=== PATIENT | female | born 1980 | race Caucasian/White ===

== ENCOUNTER 2016-07-08 08:00 | Emergency (ER) | payer OTHER ==
--- NOTE | 2016-07-08 10:14 | DIAGNOSTIC IMAGING REPORT ---
PROCEDURE: CT ABDOMEN/PELVIS W/O CONTRAST INDICATION: Nausea left flank pain. TECHNIQUE: Noncontrast axial images with sagittal and coronal reformations. COMPARISON: None. FINDINGS: ABDOMEN: There is mild left hydronephrosis and hydroureter secondary to a 3 mm calculus located at the ureteral vesicle junction. There is a nonobstructing 2 mm calculus in the upper pole left kidney. There is a 1 mm non-obstructing calculus in the upper pole right kidney. Right kidney and ureter are otherwise normal. Gallbladder, liver, spleen, pancreas, and aorta are normal. Bowel pattern is normal, including appendix. Metal umbilical piercing device. PELVIS: There is a T-shaped IUD within the endometrial canal. Uterus and adnexal structures are otherwise normal. There is a small amount of free fluid in the pelvis. IMPRESSION: 1. There is mild left hydronephrosis and hydroureter secondary to a 3 mm calculus at the left ureteral vesicle junction. 2. There is a 2 mm nonobstructing calculus of the left kidney. 3. There is a 1 mm nonobstructing calculus of the right kidney. 4. T-shaped IUD in position. 5. Small amount of free fluid in the pelvis. Consider occult ruptured ovarian cyst. 6. Findings discussed with Dr. Chiki Lopes. All CT scans at this facility use dose modulation, iterative reconstruction, and/or weight-based dosing when appropriate to reduce radiation dose to as low as reasonably achievable.
--- NOTE | 2016-07-08 11:41 | ED ORDER SUMMARY ---
..... Patient: RANDY SESAY OrderSheet [facility] VisitID: [id number] [place] [address] 36y, F Registration Date/Time: 07/08/2016 ORDER SHEET Weight: 47.1 kg (stated) Allergies: No Known Drug Allergy GENERAL ORDERS: UA-Culture if indicated Urgent (08:07/08/2016 Maryjo FERNANDEZ) (Ack 8:22 JESSICAoersarah) (8:44 LWhalen R.N.) Urine Urgent (08:07/08/2016 Maryjo FERNANDEZ) (Ack 8:22 Wanda) (8:44 LWhalen R.N.) CT Abd/Pel wo Cont Urgent (08:43 07/08/2016 Maryjo FERNANDEZ) (Ack 8:46 JESSICAoesushil) (9:37 KHoerner) MEDICATION ORDERS: IV FLUIDS: IV NS : initial bolus 1000 mL (1000 mL/hr), then none - (NOW) (08:33 07/08/2016 Maryjo FERNANDEZ) (8:40 LWhalen R.N.) Dilaudid IV 0.5 mg (HIGH ALERT MEDICATION, NOW) (08:33 07/08/2016 Maryjo FERNANDEZ) (8:43 LWhalen R.N.) Toradol IV 15 mg (NOW) (08:07/08/2016 Maryjo FERNANDEZ) (8:40 LWhalen R.N.) Zofran IV 4 mg (NOW) (08:07/08/2016 Maryjo FERNANDEZ) (8:44 LWhalen R.N.) Dilaudid IV 1 mg (HIGH ALERT MEDICATION, NOW) (10:02 07/08/2016 Long Brennan) (10:04 LWhalen R.N.) IV NS : initial bolus 1000 mL (1000 mL/hr), then none - for X1 (NOW) (10:07/08/2016 Long Brennan) (10:04 LWhalen R.N.) Dilaudid IV 1 mg (HIGH ALERT MEDICATION, NOW) (11:38 07/08/2016 Long Brennan) (12:19 LWhalen R.N.) ORDER SHEET NOTES: [Electronically signed by Chiki Lopes Dr. (11:49 07/08/2016)] [Electronically signed by Cherri Gutierrez R.N. (:19 07/08/2016)] [Electronically locked/signed by Cherri Gutierrez R.N. (:07/08/2016)]
--- NOTE | 2016-07-08 11:41 | ED ORDER SUMMARY ---
..... Patient: RANDY SESAY OrderSheet [facility] VisitID: [id number] [place] [address] 36y, F Registration Date/Time: 07/08/2016 ORDER SHEET Weight: 47.1 kg (stated) Allergies: No Known Drug Allergy GENERAL ORDERS: UA-Culture if indicated Urgent (08:07/08/2016 Maryjo FERNANDEZ) (Ack 8:22 JESSICAoersarah) (8:44 LWhalen R.N.) Urine Urgent (08:07/08/2016 Maryjo FERNANDEZ) (Ack 8:22 Wanda) (8:44 LWhalen R.N.) CT Abd/Pel wo Cont Urgent (08:43 07/08/2016 Maryjo FERNANDEZ) (Ack 8:46 JESSICAoesushil) (9:37 KHoerner) MEDICATION ORDERS: IV FLUIDS: IV NS : initial bolus 1000 mL (1000 mL/hr), then none - (NOW) (08:33 07/08/2016 Maryjo FERNANDEZ) (8:40 LWhalen R.N.) Dilaudid IV 0.5 mg (HIGH ALERT MEDICATION, NOW) (08:33 07/08/2016 Maryjo FERNANDEZ) (8:43 LWhalen R.N.) Toradol IV 15 mg (NOW) (08:07/08/2016 Maryjo FERNANDEZ) (8:40 LWhalen R.N.) Zofran IV 4 mg (NOW) (08:07/08/2016 Maryjo FERNANDEZ) (8:44 LWhalen R.N.) Dilaudid IV 1 mg (HIGH ALERT MEDICATION, NOW) (10:02 07/08/2016 Long Brennan) (10:04 LWhalen R.N.) IV NS : initial bolus 1000 mL (1000 mL/hr), then none - for X1 (NOW) (10:07/08/2016 Long Brennan) (10:04 LWhalen R.N.) Dilaudid IV 1 mg (HIGH ALERT MEDICATION, NOW) (11:38 07/08/2016 Long Brennan) (12:19 LWhalen R.N.) ORDER SHEET NOTES: [Electronically signed by Chiki Lopes Dr. (11:49 07/08/2016)] [Electronically signed by Cherri Gutierrez R.N. (:19 07/08/2016)] [Electronically locked/signed by Cherri Gutierrez R.N. (:07/08/2016)]
--- NOTE | 2016-07-08 11:41 | ED NURSING NOTES ---
Clinical Report - Nurses [facility] [address] [place] [address] 07/08/2016 8:03 [id number] Triage time 08:15 Jul 08 2016. Acuity: LEVEL 3. Chief Complaint: (left sided back pain into groin. Severe pressure like she has to push. Only has a tiny bit of pee when goes.). DAPHNIE COMA SCORE: Points Coma Scale: 15- eyes open spontaneously (4); best verbal response- oriented x 4 (5); best motor response- obeys commands (6). --08:20 Cherri Gutierrez R.N. 08:15 07/08/16. BP: 124/83. HR: 85. RR: 18. O2 saturation: 98%. Temp: 98.4 F. Pain level now 11/15. --08:20 Cherri Gutierrez R.N. Weight: 47.1 kg stated. Height/Length: 60 inches Per Patient. BMI: 20.3. --08:17 Cherri Gutierrez R.N. Medications None. --08:17 Cherri Gutierrez R.N. Allergies No Known Drug Allergy. --08:17 Cherri Gutierrez R.N. History Arrived by private vehicle. Historian: patient. Accompanied by family. This started just prior to arrival. No fever, weakness, cough, difficulty breathing or skin rash. Denies muscle aches. 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 PAST MEDICAL HX: No history of diabetes mellitus, hypertension, heart disease or lung disease. Last normal menstrual period- 22 June. SOCIAL HX: Current every day light tobacco smoker (cigarette)- less than 1/2 a pack per day. No alcohol use or drug use. SELF HARM ASSESSMENT: A self harm assessment was performed. The patient answered "no" to the question "Have you recently felt down, depressed, or hopeless?" and "Do you have thoughts of harming or killing yourself?". FALL RISK ASSESSMENT: Fall risk assessment completed. No fall risk identified. NUTRITIONAL RISK ASSESSMENT: The nutritional risk assessment revealed no deficiencies. FUNCTIONAL ASSESSMENT: Functional assessment: no impairments noted. LEARNING NEEDS ASSESSMENT: The learning needs assessment revealed no barriers. ABUSE ASSESSMENT: Abuse assessment: (yes) The patient was asked "Do you feel safe in your home?". SKIN INTEGRITY ASSESSMENT: Skin integrity risk assessment completed. No skin integrity risk identified. --08:20 Cherri Gutierrez R.N. PROBLEMS: Congested pelvic syndrome . --08:18 Cherri Gutierrez R.N. ADDITIONAL SURGERIES: IUD . Leep . Thyroid Surgery. --08:18 Cherri Gutierrez R.N. Interventions ID band on patient. --08:20 Cherri Gutierrez R.N. PHYSICAL ASSESSMENT Ambulatory to room. GENERAL / NEURO / PSYCH: Alert. Oriented X 4. Appears in pain, anxious and in distress. HEENT: Pupils equal, round and reactive to light. No facial asymmetry noted. Mucous membranes are pink. RESPIRATORY: Respirations not labored. Chest nontender. Breath sounds within normal limits. CVS: Normal sinus rhythm noted. Capillary refill less than 2 seconds. Pulses within normal limits. GI / : ( Last BM this am and normal). Abdomen soft and nontender. SKIN: Skin intact. Skin is warm and dry. Normal skin turgor. --08:20 Cherri Gutierrez R.N. NURSING PROGRESS NOTES The initial plan of care for this patient includes an assessment with efforts to address patient positioning, appropriate ambient lighting and comfortable environmental temperature. Pulse oximeter and NIBP monitor placed on patient. Head of bed elevated (90). Reassurance given. Call light placed in reach. Side rails up x 1. Bed placed in lowest position. Brakes of bed on. --08:21 Cherri Gutierrez R.N. 08:25 07/08/2016 Site #1 started via IV in the right antecubital space with an 20g angiocath, with aseptic technique and good blood return; one attempt. Blood drawn: rainbow set. Labeled in the presence of the patient and sent to the lab. Saline lock flushed with 10 mL saline. --08:40 Cherri Gutierrez R.N. 08:40 07/08/2016 Started bag #1 1000 mL IV Fluids IV NS (Saline); at 1000 mL/hr over 2 minute(s) via site #1 via IV pump. Allergies verified and confirmed 5 rights. IV patency established. IV site checked: no pain, redness, or swelling. IV flushed thoroughly pre- and post-medication administration. --08:40 Cherri Gutierrez R.N. 08:40 07/08/2016 Toradol IVP 15 mg given over 2 minute(s) via site #1. Allergies verified and confirmed 5 rights. IV patency established. IV site checked: no pain, redness, or swelling. IV flushed thoroughly pre- and post-medication administration. --08:40 Cherri Gutierrez R.N. 08:43 07/08/2016 Dilaudid (HYDROmorphone HCl PF) IVP 0.5 mg given over 1 minute(s) via site #1. Allergies verified, confirmed 5 rights and sedative warning given to the patient and patient's director of distance learning. IV patency established. IV site checked: no pain, redness, or swelling. IV flushed thoroughly pre- and post-medication administration. --08:43 Cherri Gutierrez R.N. 08:44 07/08/2016 Zofran (Ondansetron HCl) IVP 4 mg given over 2 minute(s) via site #1. Allergies verified and confirmed 5 rights. IV patency established. IV site checked: no pain, redness, or swelling. IV flushed thoroughly pre- and post-medication administration. --08:44 Cherri Gutierrez R.N. 10:04 07/08/2016 Dilaudid (HYDROmorphone HCl PF) IVP 1 mg given over 2 minute(s) via site #1. Allergies verified, confirmed 5 rights and sedative warning given to the patient and patient's director of distance learning. IV patency established. IV site checked: no pain, redness, or swelling. IV flushed thoroughly pre- and post-medication administration. --10:04 Cherri Gutierrez R.N. 10:04 07/08/2016 Started bag #1 1000 mL IV Fluids IV NS (Saline); at 1000 mL/hr over 1 hour(s) via site #1 via IV pump. Allergies verified and confirmed 5 rights. IV patency established. IV site checked: no pain, redness, or swelling. IV flushed thoroughly pre- and post-medication administration. --10:04 Cherri Gutierrez R.N. 10:04 07/08/2016 IV Fluids IV NS Discontinued: bag #1 infused. Total amount infused: 990 mL. IV patency established. IV site checked: no pain, redness, or swelling. IV flushed thoroughly. --10:04 Cherri Gutierrez R.N. 11:07 07/08/2016 IV Fluids IV NS Discontinued: bag #2 completed. Total amount infused: 1000 mL. IV patency established. IV site checked: no pain, redness, or swelling. IV flushed thoroughly. --11:07 Juan José Gonzalez R.N. 12:19 07/08/2016 Dilaudid (HYDROmorphone HCl PF) IVP 1 mg given over 2 minute(s) via site #1. Allergies verified, confirmed 5 rights and sedative warning given to the patient and patient's family. IV patency established. IV site checked: no pain, redness, or swelling. IV flushed thoroughly pre- and post-medication administration. --12:19 Cherri Gutierrez R.N. DISPOSITION / DISCHARGE 12:19 07/08/2016 Site #1 removed upon discharge. Catheter intact. Pressure dressing applied. --12:20 Cherri Gutierrez R.N. Departure time: 12:Jul 08 2016. Condition at departure: improved. No learning barriers present. Discharge instructions provided and reviewed with the patient. Reviewed warnings. Reviewed medication(s). Treatments reviewed. Reviewed referrals. Work note given. Patient verbalized understanding. Written instructions provided in Albanian. The patient was discharged home and accompanied by spouse. She left the Emergency Department ambulatory and via private vehicle. Spouse driving. --12:20 Cherir Gutierrez R.N. 12:22 07/08/16. BP: 99/67. HR: 80. RR: 18. O2 saturation: 100%. Temp: 98.4 F. Pain level now 10. --12:22 Cherri Gutierrez R.N. Locked/Released at 07/08/2016 19:19 by Cherri Gutierrez R.N.
--- NOTE | 2016-07-08 11:41 | ED CLINICAL REPORT ---
Clinical Report - Physicians/Mid Levels [facility] [address] [place] [address] 07/08/2016 8:03 Patient: RANDY SESAY Time Seen: 820. Arrived- By private vehicle. Historian- patient. HISTORY OF PRESENT ILLNESS Chief Complaint: LOW BACK PAIN and LEFT FLANK PAIN. This started last night and still present. The symptoms are described as moderate. Modifying factors- (PT states that she keeps feeling as though she needs to bear down, but this does not help her sx.). Not worsened by anything. Not relieved by anything. The patient has had pelvic pain, lower back pain and flank pain. No abdominal pain, vaginal pain or abnormal bleeding. She has had mild burning pain with urination. The patient has had urinary frequency and hematuria. She has had urgency of urination. Sexually active. control measures utilized (TL and IUD). Denies current . Similar symptoms previously: None. Recent medical care: Not recently seen/assessed. REVIEW OF SYSTEMS The patient has had nausea. No vomiting, diarrhea, black stools, headache or fever. No chills, eye discomfort, sore throat, cough or difficulty breathing. No chest pain, skin rash, enlarged lymph nodes or joint pain. All systems otherwise negative, except as recorded above. PAST HISTORY Problems: Congested pelvic syndrome . Additional Surgeries: IUD . Leep . Thyroid Surgery. Medications: None. Allergies: No Known Drug Allergy. SOCIAL HISTORY Smoker- current status unknown. No alcohol use or drug use. ADDITIONAL NOTES The nursing notes have been reviewed. PHYSICAL EXAM Vital Signs: 07/08/2016 08:15 BP: 124/83. HR: 85. RR: 18. O2 saturation: 98%. Temp: 98.4 F. Have been reviewed. Appearance: Alert. Oriented X3. (Pt appears moderately uncomfortable, and occasionally moans in pain. She is pleasant and cooperative despite this, however.). HEENT: Normal external inspection. Neck: Neck supple. CVS: Heart sounds normal. Respiratory: No respiratory distress. Breath sounds normal. Abdomen: Soft. Moderate tenderness (L flank). No guarding or rebound tenderness. Back: Moderate CVA tenderness on the left. Skin: Skin warm and dry. Normal skin color. No rash. Normal skin turgor. Extremities: Extremities nontender. No lower extremity edema. Neuro: Oriented X 3. Mood/affect normal. No motor deficit. No sensory deficit. LABS, X-RAYS, AND EKG Abdominal CT: PROCEDURE: CT ABDOMEN/PELVIS W/O CONTRAST INDICATION: Nausea left flank pain. TECHNIQUE: Noncontrast axial images with sagittal and coronal reformations. COMPARISON: None. FINDINGS: ABDOMEN: There is mild left hydronephrosis and hydroureter secondary to a 3 mm calculus located at the ureteral vesicle junction. There is a nonobstructing 2 mm calculus in the upper pole left kidney. There is a 1 mm non-obstructing calculus in the upper pole right kidney. Right kidney and ureter are otherwise normal. Gallbladder, liver, spleen, pancreas, and aorta are normal. Bowel pattern is normal, including appendix. Metal umbilical piercing device. PELVIS: There is a T-shaped IUD within the endometrial canal. Uterus and adnexal structures are otherwise normal. There is a small amount of free fluid in the pelvis. IMPRESSION: 1. There is mild left hydronephrosis and hydroureter secondary to a 3 mm calculus at the left ureteral vesicle junction. 2. There is a 2 mm nonobstructing calculus of the left kidney. 3. There is a 1 mm nonobstructing calculus of the right kidney. 4. T-shaped IUD in position. 5. Small amount of free fluid in the pelvis. Consider occult ruptured ovarian cyst. 6. Findings discussed with Dr. Chiki Lopes. Study type: renal stone evaluation. Abdominal CT performed without contrast. The study was independently viewed by me, interpreted by the radiologist and discussed with the radiologist. Laboratory Tests: UA-Culture if indicated: (NILAM: 07/08/2016 08:16) ( MsgRcvd 07/08/2016 08:41) Final results Test Result Flag Units (Reference) URINE COLOR MILLER URINE APPEARANCE CLOUDY URINE GLUCOSE NEGATIVE (NEGATIVE) URINE BILIRUBIN NEGATIVE (NEGATIVE) URINE KETONE TRACE (NEGATIVE) URINE SPECIFIC GRAVITY >= 1.030 (1.010-1.030) URINE PH 5.5 (5.0-8.0) URINE PROTEIN 1+ (NEGATIVE) URINE UROBILINOGEN 0.2 EU/dL (0.2-1.0) URINE NITRITE NEGATIVE (NEGATIVE) URINE BLOOD 3+ (NEGATIVE) URINE LEUK ESTERASE NEGATIVE (NEGATIVE) URINE RBC >100 rbc/hpf (0-1) URINE WBC 1-3 wbc/hpf (0-1) URINE EPITHELIAL CELLS 10-15 EPI/hpf (0-5) URINE BACTERIA TRACE (<1+) (NONE SEEN) URINE COMMENT CULT NOT INDICATED URINE CULTURES ARE SET-UP BASED ON THE FOLLOWING CRITERIA:POSITIVE NITRITEPOSITIVE LEUKOCYTE ESTERASEGREATER THAN 10 WHITE BLOOD CELLSMODERATE (2+) OR GREATER BACTERIA Urine: (NILAM: 07/08/2016 08:16) ( MsgRcvd 07/08/2016 08:28) Final results Test Result Flag Units (Reference) URINE NEGATIVE . Pulse Oximetry: 07/08/2016 08:15 O2 saturation: 98%. (FIO2 - room air). Interpretation: normal. PROGRESS AND PROCEDURES Course of Care: the patient is a pleasant 36-year-old female with past medical history significant forkidney stones presented for evaluation of left-sided flank pain. Patient was evaluated by theprevious doctor. Plans to follow up on patient's laboratory studies and CT scan. Most likely representing renal colic. CT scan results returned and patient having a 3 mm stone in the UVJ. Patient with high likelihood of passing stone. Patient was reevaluated and examined by myself. Introduced myself and performed my own independent examination and history. Patient updated on the results of herscans and laboratory studies. Pain medication will be provided additionally because patient's pain has been returning. The patient's pain can be adequately controlled, do not feel patient is being admitted to the hospital or require further emergency department workup/evaluation. Patient continues to be nontoxic and does have improved symptoms while here. Patient with significant improvement in pain symptoms here in the emergency department. I discussion again with patient in regards to her workup in the emergency department including diagnosis, home care, follow-up, and return precautions. All questions have been answered. The patient expressed understanding of these instructions and was agreeable to them. Patient is ambulatory without any acute distress. Patient will be given a note workand recommendfollowing up with urology via her primary care DrDanielito Disposition: Discharged. Condition: good. CLINICAL IMPRESSION Acute left lower quadrant abdominal pain. 07/08/2016 08:15 BP: 124/83. HR: 85. RR: 18. O2 saturation: 98%. Temp: 98.4 F. Gross hematuria (acute). Blood pressure normal. Oxygen saturation normal. Left renal colic in the left ureter with hydronephrosis. INSTRUCTIONS Warnings: GENERAL WARNINGS: Return or contact your physician immediately if your condition worsens or changes unexpectedly, if not improving as expected, or if other problems arise. Specifically return if pain, vomiting, bleeding, breathing difficulty or fever. Your Current Medications: CONTINUE TAKING THE FOLLOWING MEDICATIONS: None*. Prescription Medications: Zofran (orally disintegrating tablets) 4 mg: take 1 orally every 8 hours as needed for nausea and vomiting. Dispense ten (10). No refill. Substitution is permissible. Motrin 600 mg tablets: take 1 tablet orally every 6 hours as needed for pain, stiffness or swelling. Dispense thirty (30). No refill. Substitution is permissible. Percocet 5 mg/325 mg: take 1-2 tablets orally every 6 hours as needed for pain. Dispense twenty (20). No refill. Substitution is permissible. Follow-up: Return to the emergency department as needed. Follow up with your doctor in three. Reason for referral: recheck today's concerns. Summary of care provided to patient via paper. Screening today revealed the patient's blood pressure to be in the normal range. The patient should follow up with a primary care provider for blood pressure management. Understanding of the discharge instructions verbalized by patient. (Electronically signed by Chiki Lopes Dr. 07/08/2016 11:49)
--- NOTE | 2016-07-08 19:20 | ED MED RECONCILIATION SUMMARY ---
Patient: RANDY SESAY Medication Reconciliation Report [facility] VisitID: [id number] [address] [place] [address] 36y, F Registration Date/Time: 07/08/2016 Weight: 47.1 kg Height/Length: 60 in. BMI: 20.3 ALLERGIES: No Known Drug Allergy The patient's Home Medications are listed below: NONE. The source(s) of the original Home Medication information: Not obtained. The following Medications were given to the patient in the Emergency Department: IV NS IV Fluids bolus 0, then 1000 mL/hr, administered: 07/08/2016 8:40:00 AM Toradol [IVP] IVP 15 mg, administered: 07/08/2016 8:40:00 AM Dilaudid [IVP] IVP 0.5 mg, administered: 07/08/2016 8:43:00 AM Zofran [IVP] IVP 4 mg, administered: 07/08/2016 8:44:00 AM Dilaudid [IVP] IVP 1 mg, administered: 07/08/2016 10:04:00 AM IV NS IV Fluids bolus 0, then 1000 mL/hr, administered: 07/08/2016 10:04:00 AM Dilaudid [IVP] IVP 1 mg, administered: 07/08/2016 12:19:00 PM The following Medications were prescribed to the patient: Zofran (orally disintegrating tablets) 4 mg: take 1 orally every 8 hours as needed for nausea and vomiting. Dispense ten (10). No refill. Substitution is permissible. -- Chiki Lopes Dr. Motrin 600 mg tablets: take 1 tablet orally every 6 hours as needed for pain, stiffness or swelling. Dispense thirty (30). No refill. Substitution is permissible. -- Chiki Lopes Dr. Percocet 5 mg/325 mg: take 1-2 tablets orally every 6 hours as needed for pain. Dispense twenty (20). No refill. Substitution is permissible. -- Chiki Lopes Dr.
--- NOTE | 2016-07-08 19:20 | ED MAR SUMMARY ---
..... Medication Administration Record [facility] [address] [place] [address] Patient: RANDY SESAY Visit ID: [id number] 36y, F Weight: 47.1 kg Height/Length: 60 in BMI: 20.3 ALLERGIES: No Known Drug Allergy Given 08:40 07/08/2016 Cherri Gutierrez R.N. Medication Administered: TORADOL [IVP], Dose: 15 mg IVP over 2 minute(s), Site: #1 right AC. Medication Ordered: Toradol IV 15 mg (NOW). Start 08:40 07/08/2016 Cherri Gutierrez R.N., Stop 10:07/08/2016 Cherri Gutierrez R.N. Medication Administered: IV NS (SALINE), Dose: IV Fluids over 2 minute(s), Rate: 1000 mL/hr, Dispensed: 1000 mL bag, Site: #1 right AC. Medication Ordered: IV NS : initial bolus 1000 mL (1000 mL/hr), then none - (NOW). Given 08:43 07/08/2016 Cherri Gutierrez R.N. Medication Administered: DILAUDID [IVP] (HYDROMORPHONE HCL PF), Dose: 0.5 mg IVP over 1 minute(s), Site: #1 right AC. Medication Ordered: Dilaudid IV 0.5 mg (HIGH ALERT MEDICATION, NOW). Given 08:44 07/08/2016 Cherri Gutierrez R.N. Medication Administered: ZOFRAN [IVP] (ONDANSETRON HCL), Dose: 4 mg IVP over 2 minute(s), Site: #1 right AC. Medication Ordered: Zofran IV 4 mg (NOW). Given 10:04 07/08/2016 Cherri Gutierrez R.N. Medication Administered: DILAUDID [IVP] (HYDROMORPHONE HCL PF), Dose: 1 mg IVP over 2 minute(s), Site: #1 right AC. Medication Ordered: Dilaudid IV 1 mg (HIGH ALERT MEDICATION, NOW). Start 10:04 07/08/2016 Cherri Gutierrez R.N., Stop 11:07 07/08/2016 Juan José Gonzalez RSamreen. Medication Administered: IV NS (SALINE), Dose: IV Fluids over 1 hour(s), Rate: 1000 mL/hr, Dispensed: 1000 mL bag, Site: #1 right AC. Medication Ordered: IV NS : initial bolus 1000 mL (1000 mL/hr), then none - for X1 (NOW). Given 12:19 07/08/2016 Cherri Gutierrez RDanielitoN. Medication Administered: DILAUDID [IVP] (HYDROMORPHONE HCL PF), Dose: 1 mg IVP over 2 minute(s), Site: #1. Medication Ordered: Dilaudid IV 1 mg (HIGH ALERT MEDICATION, NOW).
--- NOTE | 2016-07-08 19:20 | ED MAR SUMMARY ---
..... Medication Administration Record [facility] [address] [place] [address] Patient: RANDY SESAY Visit ID: [id number] 36y, F Weight: 47.1 kg Height/Length: 60 in BMI: 20.3 ALLERGIES: No Known Drug Allergy Given 08:40 07/08/2016 Cherri Gutierrez R.N. Medication Administered: TORADOL [IVP], Dose: 15 mg IVP over 2 minute(s), Site: #1 right AC. Medication Ordered: Toradol IV 15 mg (NOW). Start 08:40 07/08/2016 Cherri Gutierrez R.N., Stop 10:07/08/2016 Cherri Gutierrez R.N. Medication Administered: IV NS (SALINE), Dose: IV Fluids over 2 minute(s), Rate: 1000 mL/hr, Dispensed: 1000 mL bag, Site: #1 right AC. Medication Ordered: IV NS : initial bolus 1000 mL (1000 mL/hr), then none - (NOW). Given 08:43 07/08/2016 Cherri Gutierrez R.N. Medication Administered: DILAUDID [IVP] (HYDROMORPHONE HCL PF), Dose: 0.5 mg IVP over 1 minute(s), Site: #1 right AC. Medication Ordered: Dilaudid IV 0.5 mg (HIGH ALERT MEDICATION, NOW). Given 08:44 07/08/2016 Cherri Gutierrez R.N. Medication Administered: ZOFRAN [IVP] (ONDANSETRON HCL), Dose: 4 mg IVP over 2 minute(s), Site: #1 right AC. Medication Ordered: Zofran IV 4 mg (NOW). Given 10:04 07/08/2016 Cherri Gutierrez R.N. Medication Administered: DILAUDID [IVP] (HYDROMORPHONE HCL PF), Dose: 1 mg IVP over 2 minute(s), Site: #1 right AC. Medication Ordered: Dilaudid IV 1 mg (HIGH ALERT MEDICATION, NOW). Start 10:04 07/08/2016 Cherri Gutierrez R.N., Stop 11:07 07/08/2016 Juan José Gonzalez RSamreen. Medication Administered: IV NS (SALINE), Dose: IV Fluids over 1 hour(s), Rate: 1000 mL/hr, Dispensed: 1000 mL bag, Site: #1 right AC. Medication Ordered: IV NS : initial bolus 1000 mL (1000 mL/hr), then none - for X1 (NOW). Given 12:19 07/08/2016 Cherri Gutierrez RDanielitoN. Medication Administered: DILAUDID [IVP] (HYDROMORPHONE HCL PF), Dose: 1 mg IVP over 2 minute(s), Site: #1. Medication Ordered: Dilaudid IV 1 mg (HIGH ALERT MEDICATION, NOW).
--- NOTE | 2016-07-08 19:20 | ED MED RECONCILIATION SUMMARY ---
Patient: RANDY SESAY Medication Reconciliation Report [facility] VisitID: [id number] [address] [place] [address] 36y, F Registration Date/Time: 07/08/2016 Weight: 47.1 kg Height/Length: 60 in. BMI: 20.3 ALLERGIES: No Known Drug Allergy The patient's Home Medications are listed below: NONE. The source(s) of the original Home Medication information: Not obtained. The following Medications were given to the patient in the Emergency Department: IV NS IV Fluids bolus 0, then 1000 mL/hr, administered: 07/08/2016 8:40:00 AM Toradol [IVP] IVP 15 mg, administered: 07/08/2016 8:40:00 AM Dilaudid [IVP] IVP 0.5 mg, administered: 07/08/2016 8:43:00 AM Zofran [IVP] IVP 4 mg, administered: 07/08/2016 8:44:00 AM Dilaudid [IVP] IVP 1 mg, administered: 07/08/2016 10:04:00 AM IV NS IV Fluids bolus 0, then 1000 mL/hr, administered: 07/08/2016 10:04:00 AM Dilaudid [IVP] IVP 1 mg, administered: 07/08/2016 12:19:00 PM The following Medications were prescribed to the patient: Zofran (orally disintegrating tablets) 4 mg: take 1 orally every 8 hours as needed for nausea and vomiting. Dispense ten (10). No refill. Substitution is permissible. -- Chiki Lopes Dr. Motrin 600 mg tablets: take 1 tablet orally every 6 hours as needed for pain, stiffness or swelling. Dispense thirty (30). No refill. Substitution is permissible. -- Chiki Lopes Dr. Percocet 5 mg/325 mg: take 1-2 tablets orally every 6 hours as needed for pain. Dispense twenty (20). No refill. Substitution is permissible. -- Chiki Lopes Dr.
--- NOTE | 2016-07-08 19:20 | ED DISCHARGE INSTRUCTIONS ---
Patient: RANDY SESAY General Instructions [facility] VisitID: [id number] [place] [address] 36y, F Registration Date/Time: 07/08/2016 Acute left lower quadrant abdominal pain. 07/08/2016 08:15 BP: 124/83. HR: 85. RR: 18. O2 saturation: 98%. Temp: 98.4 F. Gross hematuria (acute). Blood pressure normal. Oxygen saturation normal. Left renal colic in the left ureter with hydronephrosis. INSTRUCTIONS Warnings: GENERAL WARNINGS: Return or contact your physician immediately if your condition worsens or changes unexpectedly, if not improving as expected, or if other problems arise. Specifically return if pain, vomiting, bleeding, breathing difficulty or fever. Your Current Medications: CONTINUE TAKING THE FOLLOWING MEDICATIONS: None*. Prescription Medications: Zofran (orally disintegrating tablets) 4 mg: take 1 orally every 8 hours as needed for nausea and vomiting. Dispense ten (10). No refill. Substitution is permissible. Motrin 600 mg tablets: take 1 tablet orally every 6 hours as needed for pain, stiffness or swelling. Dispense thirty (30). No refill. Substitution is permissible. Percocet 5 mg/325 mg: take 1-2 tablets orally every 6 hours as needed for pain. Dispense twenty (20). No refill. Substitution is permissible. Follow-up: Return to the emergency department as needed. Follow up with your doctor in three. Reason for referral: recheck today's concerns. Summary of care provided to patient via paper. Screening today revealed the patient's blood pressure to be in the normal range. The patient should follow up with a primary care provider for blood pressure management. Understanding of the discharge instructions verbalized by patient. ADDITIONAL INFORMATION Abdominal Pain,Uncertain Cause [Male] Based on your visit today, the exact cause of your abdominalpain is not clear. Your exam and tests do not indicate a dangerous cause at this time. However, the signs of a serious problem may take more time to appear. Although your evaluation was reassuring today, sometimes early in the course of many conditions, exam and lab tests can appear normal. Therefore, it is important for you to watch for any new symptoms or worsening of your condition. Causes It may not be obvious what caused your symptoms. Pay attention to things that do seem to make your symptoms worse or better and discuss this with your doctor when you follow up. Diagnosis The evaluation of abdominal pain in the emergency department may onlyrequire an exam by the doctor or it may include blood, urine or imaging studies, depending on many factors. Sometimes exams and tests can identify a cause but in many cases, a clear cause is not found. Further testing at follow up visits may help to suggest a clear diagnosis. Home Care Rest as much as possible until your next exam. Try to avoid any medications (unless otherwise directed by your doctor), foods, activities, or other factors that you may have contributed to your symptoms. Try to eat foods that you know that you have tolerated well in the past. Certain diets may be recommended for some conditions that cause abdominal pain. However, since the cause of your symptoms may not be clear, discuss your diet more with your primary care provider or specialist for further recommendations. Eating several small meals per day as opposed to 2 or 3 larger meals may help. Monitor closely for anything that may make your symptoms worse or better. Pay close attention to symptoms below that may indicate worsening of your condition. Follow Up and Precautions See your doctoras instructed or sooneror if your symptoms are not improving.In some cases, you may need more testing. When to Seek Medical Attention Contact your doctor or see medical attention ifany of the following occur: Pain is becoming worse You are unable to take your medications due to excessive vomiting Swelling of the abdomen Fever of 100.4F (38C) or higher, or as directed by your health care provider Blood in vomit or bowel movements (dark red or black color) Jaundice (yellow color of eyes and skin) New onset of weakness, dizziness or fainting New onset of chest, arm, back, neck or jaw pain Kidney Stone (W/ Colic) The sharp cramping pain and nausea/vomiting that you have is due to a small stone which has formed in the kidney and is now passing down a narrow tube (ureter) on its way to your bladder. Once it reaches your bladder, the pain will stop. The stone may pass in your urine stream in one piece. [The size may be 1/16" to 1/4" (1-6mm)]. Or, the stone may also break up into barb fragments which you may not even notice. Once you have had a kidney stone, you are at risk for developing another one in the future. Home Care: Drink plenty of fluids (at least 8 to 10 glasses of water a day). Most stones will pass on their own, but may take from a few hours to a few days. Sometimes the stone is too large to pass by itself and special methods will have to be used to remove the stone. Each time you urinate, do so in a jar. Pour the urine from the jar through the strainer and into the toilet. Continue doing this until 24 hours after your pain stops. By then, if there was a kidney stone, it should pass from your bladder. Some stones dissolve into sand-like particles and pass right through the strainer. In that case, you wont ever see a stone. Save any stone that you find in the strainer and bring it to your doctor for analysis. It may be possible to prevent certain types of stones from forming. Therefore, it is important to know what kind of stone you have. Try to stay as active as possible since this will help the stone pass. Do not stay in bed unless your pain prevents you from getting up. You may notice a red, pink or brown color to your urine. This is normal while passing a kidney stone. Follow Up with your doctor or return to this facility if the pain lasts more than 48 hours. Get Prompt Medical Attention if any of the following occur: Pain that is not controlled by the medicine given Repeated vomiting or unable to keep down fluids Weakness, dizziness or fainting Fever of 100.4F (38C) or higher, or as directed by your healthcare provider Passage of solid red or brown urine (can't see through it) or urine with lots of blood clots Unable to pass urine for 8 hours and increasing bladder pressure Blood In The Urine Blood in the urine ("hematuria") has many possible causes. If it occurs after an injury (such as a car accident or fall), it is most often a sign of bruising to the kidney or bladder. Common medical causes of blood in the urine include urinary tract infection, kidney stone, inflammation, tumors, or certain other diseases of the kidney or bladder. Menstruation can cause blood to appear in the urine sample, although it is not coming from the urinary tract. If only a trace amount of blood is present, it will show up on the urine test, even though the urine may be yellow and not pink or red. This may occur with any of the above conditions, as well as heavy exercise or high fever. In this case, your doctor may want to repeat the urine test on another day. This will show if the blood is still present. If so, then other tests can be done to find out the cause. Home Care: If your urine does not appear bloody (pink, brown or red) then you do not need to restrict your activity in any way. If you can see blood in your urine, rest and avoid heavy exertion until your next exam. Do not use aspirin or anti-inflammatory medicine like ibuprofen (Motrin, Advil) or naproxen (Naprosyn, Aleve). These thin the blood and may increase bleeding. Follow Up with your doctor or as advised by our staff. If you were injured and had blood in your urine, you should have a repeat urine test in 1-2 days. Contact your doctor or return to this facility for this test. [NOTE: A radiologist will review any X-rays that were taken. We will notify you of any new findings that may affect your care.] Get Prompt Medical Attention if any of the following occur: Bright red blood or blood clots in the urine (if a new symptom) Weakness, dizziness or fainting New groin, abdominal or back pain Fever of 100.4F (38C) or higher, or as directed by your healthcare provider Repeated vomiting Bleeding from nose, gums or easy bruising Ondansetron Oral disintegrating tablet What is this medicine? ONDANSETRON (on JUAN se hugo) is used to treat nausea and vomiting caused by chemotherapy. It is also used to prevent or treat nausea and vomiting after surgery. How should I use this medicine? These tablets are made to dissolve in the mouth. Do not try to push the tablet through the foil backing. With dry hands, peel away the foil backing and gently remove the tablet. Place the tablet in the mouth and allow it to dissolve, then swallow. While you may take these tablets with water, it is not necessary to do so. Talk to your staff command and control officer regarding the use of this medicine in children. Special care may be needed. What side effects may I notice from receiving this medicine? Side effects that you should report to your doctor or health home visit field care manager as soon as possible: allergic reactions like skin rash, itching or hives, swelling of the face, lips, or tongue breathing problems dizziness fast or irregular heartbeat feeling faint or lightheaded, falls fever and chills swelling of the hands and feet tightness in the chest Side effects that usually do not require medical attention (report to your doctor or health home visit field care manager if they continue or are bothersome): constipation or diarrhea headache What may interact with this medicine? Do not take this medicine with any of the following medications: -apomorphine -cisapride -dofetilide -dronedarone -pimozide -thioridazine -ziprasidone This medicine may also interact with the following medications: -carbamazepine -phenytoin -rifampicin -tramadol -other medicines that prolong the QT interval (cause an abnormal heart rhythm) What if I miss a dose? If you miss a dose, take it as soon as you can. If it is almost time for your next dose, take only that dose. Do not take double or extra doses. Where should I keep my medicine? Keep out of the reach of children. Store between 2 and 30 degrees C (36 and 86 degrees F). Throw away any unused medicine after the expiration date. What should I tell my health care provider before I take this medicine? They need to know if you have any of these conditions: heart disease history of irregular heartbeat liver disease low levels of magnesium or potassium in the blood an unusual or allergic reaction to ondansetron, granisetron, other medicines, foods, dyes, or preservatives or trying to get breast-feeding What should I watch for while using this medicine? Check with your doctor or health home visit field care manager as soon as you can if you have any sign of an allergic reaction. Ibuprofen Oral tablet What is this medicine? IBUPROFEN (eye BYOO proe fen) is a non-steroidal anti-inflammatory drug (NSAID). It is used for dental pain, fever, headaches or migraines, osteoarthritis, rheumatoid arthritis, or painful monthly periods. It can also relieve minor aches and pains caused by a cold, flu, or sore throat. How should I use this medicine? Take this medicine by mouth with a glass of water. Follow the directions on the prescription label. Take this medicine with food if your stomach gets upset. Try to not lie down for at least 10 minutes after you take the medicine. Take your medicine at regular intervals. Do not take your medicine more often than directed. A special MedGuide will be given to you by the pharmacist with each prescription and refill. Be sure to read this information carefully each time. Talk to your staff command and control officer regarding the use of this medicine in children. Special care may be needed. What side effects may I notice from receiving this medicine? Side effects that you should report to your doctor or health home visit field care manager as soon as possible: allergic reactions like skin rash, itching or hives, swelling of the face, lips, or tongue black or bloody stools, blood in the urine or in vomit breathing problems changes in vision chest pain general ill feeling or flu-like symptoms nausea or vomiting redness, blistering, peeling or loosening of the skin, including inside the mouth slurred speech or weakness on one side of the body stomach pain unexplained weight gain or swelling unusually weak or tired yellowing of eyes or skin Side effects that usually do not require medical attention (report to your doctor or health home visit field care manager if they continue or are bothersome): constipation or diarrhea dizziness gas or heartburn stomach upset What may interact with this medicine? Do not take this medicine with any of the following medications: cidofovir ketorolac methotrexate pemetrexed This medicine may also interact with the following medications: alcohol aspirin diuretics lithium other drugs for inflammation like prednisone warfarin What if I miss a dose? If you miss a dose, take it as soon as you can. If it is almost time for your next dose, take only that dose. Do not take double or extra doses. Where should I keep my medicine? Keep out of the reach of children. Store at room temperature between 15 and 30 degrees C (59 and 86 degrees F). Keep container tightly closed. Throw away any unused medicine after the expiration date. What should I tell my health care provider before I take this medicine? They need to know if you have any of these conditions: asthma cigarette smoker drink more than 3 alcohol containing drinks a day heart disease or circulation problems such as heart failure or leg edema (fluid retention) high blood pressure kidney disease liver disease stomach bleeding or ulcers an unusual or allergic reaction to ibuprofen, aspirin, other NSAIDS, other medicines, foods, dyes, or preservatives or trying to get breast-feeding What should I watch for while using this medicine? Tell your doctor or healthcare professional if your symptoms do not start to get better or if they get worse. This medicine does not prevent heart attack or stroke. In fact, this medicine may increase the chance of a heart attack or stroke. The chance may increase with longer use of this medicine and in people who have heart disease. If you take aspirin to prevent heart attack or stroke, talk with your doctor or health home visit field care manager. Do not take other medicines that contain aspirin, ibuprofen, or naproxen with this medicine. Side effects such as stomach upset, nausea, or ulcers may be more likely to occur. Many medicines available without a prescription should not be taken with this medicine. This medicine can cause ulcers and bleeding in the stomach and intestines at any time during treatment. Ulcers and bleeding can happen without warning symptoms and can cause . To reduce your risk, do not smoke cigarettes or drink alcohol while you are taking this medicine. You may get drowsy or dizzy. Do not drive, use machinery, or do anything that needs mental alertness until you know how this medicine affects you. Do not stand or sit up quickly, especially if you are an older patient. This reduces the risk of dizzy or fainting spells. This medicine can cause you to bleed more easily. Try to avoid damage to your teeth and gums when you brush or floss your teeth. Oxycodone Hydrochloride, Acetaminophen Oral tablet What is this medicine? ACETAMINOPHEN; OXYCODONE (a set a TYRA ann fen; ox i KOE done) is a pain reliever. It is used to treat mild to moderate pain. How should I use this medicine? Take this medicine by mouth with a full glass of water. Follow the directions on the prescription label. Take your medicine at regular intervals. Do not take your medicine more often than directed. Talk to your staff command and control officer regarding the use of this medicine in children. Special care may be needed. Patients over 65 years old may have a stronger reaction and need a smaller dose. What side effects may I notice from receiving this medicine? Side effects that you should report to your doctor or health home visit field care manager as soon as possible: allergic reactions like skin rash, itching or hives, swelling of the face, lips, or tongue breathing difficulties, wheezing confusion light headedness or fainting spells severe stomach pain yellowing of the skin or the whites of the eyes Side effects that usually do not require medical attention (report to your doctor or health home visit field care manager if they continue or are bothersome): dizziness drowsiness nausea vomiting What may interact with this medicine? alcohol antihistamines barbiturates like amobarbital, butalbital, butabarbital, methohexital, pentobarbital, phenobarbital, thiopental, and secobarbital benztropine drugs for bladder problems like solifenacin, trospium, oxybutynin, tolterodine, hyoscyamine, and methscopolamine drugs for breathing problems like ipratropium and tiotropium drugs for certain stomach or intestine problems like propantheline, homatropine methylbromide, glycopyrrolate, atropine, belladonna, and dicyclomine general anesthetics like etomidate, ketamine, nitrous oxide, propofol, desflurane, enflurane, halothane, isoflurane, and sevoflurane medicines for depression, anxiety, or psychotic disturbances medicines for sleep muscle relaxants naltrexone narcotic medicines (opiates) for pain phenothiazines like perphenazine, thioridazine, chlorpromazine, mesoridazine, fluphenazine, prochlorperazine, promazine, and trifluoperazine scopolamine tramadol trihexyphenidyl What if I miss a dose? If you miss a dose, take it as soon as you can. If it is almost time for your next dose, take only that dose. Do not take double or extra doses. Where should I keep my medicine? Keep out of the reach of children. This medicine can be abused. Keep your medicine in a safe place to protect it from theft. Do not share this medicine with anyone. Selling or giving away this medicine is dangerous and against the law. Store at room temperature between 20 and 25 degrees C (68 and 77 degrees F). Keep container tightly closed. Protect from light. This medicine may cause accidental overdose and if it is taken by other adults, children, or pets. Flush any unused medicine down the toilet to reduce the chance of harm. Do not use the medicine after the expiration date. What should I tell my health care provider before I take this medicine? They need to know if you have any of these conditions: brain tumor Crohn's disease, inflammatory bowel disease, or ulcerative colitis drink more than 3 alcohol containing drinks per day drug abuse or addiction head injury heart or circulation problems kidney disease or problems going to the bathroom liver disease lung disease, asthma, or breathing problems an unusual or allergic reaction to acetaminophen, oxycodone, other opioid analgesics, other medicines, foods, dyes, or preservatives or trying to get breast-feeding What should I watch for while using this medicine? Tell your doctor or health home visit field care manager if your pain does not go away, if it gets worse, or if you have new or a different type of pain. You may develop tolerance to the medicine. Tolerance means that you will need a higher dose of the medication for pain relief. Tolerance is normal and is expected if you take this medicine for a long time. Do not suddenly stop taking your medicine because you may develop a severe reaction. Your body becomes used to the medicine. This does NOT mean you are addicted. Addiction is a behavior related to getting and using a drug for a non-medical reason. If you have pain, you have a medical reason to take pain medicine. Your doctor will tell you how much medicine to take. If your doctor wants you to stop the medicine, the dose will be slowly lowered over time to avoid any side effects. You may get drowsy or dizzy. Do not drive, use machinery, or do anything that needs mental alertness until you know how this medicine affects you. Do not stand or sit up quickly, especially if you are an older patient. This reduces the risk of dizzy or fainting spells. Alcohol may interfere with the effect of this medicine. Avoid alcoholic drinks. There are different types of narcotic medicines (opiates) for pain. If you take more than one type at the same time, you may have more side effects. Give your health care provider a list of all medicines you use. Your doctor will tell you how much medicine to take. Do not take more medicine than directed. Call emergency for help if you have problems breathing. The medicine will cause constipation. Try to have a bowel movement at least every 2 to 3 days. If you do not have a bowel movement for 3 days, call your doctor or health home visit field care manager. Do not take Tylenol (acetaminophen) or medicines that have acetaminophen with this medicine. Too much acetaminophen can be very dangerous. Many nonprescription medicines contain acetaminophen. Always read the labels carefully to avoid taking more acetaminophen. You have been given the following additional information: Abdominal Pain, Unknown Cause, (Male) Kidney Stone W/ Colic Hematuria Ondansetron Oral disintegrating tablet Ibuprofen Oral tablet Oxycodone Hydrochloride, Acetaminophen Oral tablet (Electronically signed by Chiki Lopes Dr. 07/08/2016 11:49)
== END 2016-07-08 08:03 | disposition home or self-care (01) ==
LOC: ED SRH 08:00
DX: N13.2 Hydronephrosis with renal and ureteral calculous obstruction (principal); R10.32 Left lower quadrant pain; R31.0 Gross hematuria
CPT/HCPCS: 90004; 93070

== ENCOUNTER 2016-07-09 16:26 | Emergency (ER) | payer OTHER ==
--- NOTE | 2016-07-09 18:46 | ED ORDER SUMMARY ---
..... Patient: RANDY SESAY OrderSheet [facility] VisitID: [id number] [place] [address] 36y, F Registration Date/Time: 07/09/2016 ORDER SHEET Weight: 47.6 kg (stated) Allergies: No Known Drug Allergy GENERAL ORDERS: UA-Culture if indicated Urgent (17:14 07/09/2016 EKoroleva P.A.-C) (17:15 MCook R.N.) Wet Prep (Cervix) (c) Urgent (18:06 07/09/2016 EKoroleva P.A.-C) (Ack 18:08 KHoerner) (18:12 MCook R.N.) (18:12 KHoerner) GC/Chlamydia (Cervix) (c) Urgent (18:06 07/09/2016 EKoroleva P.A.-C) (Ack 18:08 KHoerner) (18:12 MCook R.N.) (18:12 KHoerner) Abdomen 1V Upright Urgent (18:56 07/09/2016 EKoroleva P.A.-C) (Ack 19:00 KHoerner) (19:42 MCampbell) CBC w Diff Urgent (18:56 07/09/2016 EKoroleva P.A.-C) (Ack 19:00 KHoerner) (19:03 MCook R.N.) CMP Urgent (18:56 07/09/2016 EKoroleva P.A.-C) (Ack 19:00 KHoerner) (19:03 MCook R.N.) MEDICATION ORDERS: Ciprofloxacin PO 500 mg (NOW) (17:43 07/09/2016 EKoroleva P.A.-C) (17:48 MCook R.N.) IV FLUIDS: IV NS : initial bolus 1000 mL (1000 mL/hr), then 1000 mL/hr for X1 (NOW); Hilario (16:44 07/09/2016 EKoroleva P.A.-C) (16:57 MCook R.N.) Toradol IV 30 mg (NOW) (16:44 07/09/2016 EKoroleva P.A.-C) (16:58 Patrick R.N.) IV Saline Lock (16:44 07/09/2016 EKoroleva P.A.-C) (16:56 MCook R.N.) Zofran IV 4 mg (NOW) (17:28 07/09/2016 EKoroleva P.A.-C) (17:31 Purnimak R.N.) Dilaudid IV 0.5 mg (may repeat in 15 mins, total dose for this order is 1 MG) (18:19 07/09/2016 EKoroleva P.A.-C) (18:22 MCook R.N.) ORDER SHEET NOTES: [Electronically signed by Dipak Rushing R.N. (20:20 07/09/2016)] [Electronically signed by Susy McfarlandADanielito-C (21:08 07/09/2016)] [Electronically locked/signed by Dipak Rushing R.N. (20:20 07/09/2016)]
--- NOTE | 2016-07-09 18:46 | ED NURSING NOTES ---
Clinical Report - Nurses [facility] [place] [address] 07/09/2016 16:27 Patient: RANDY SESAY TRIAGE Triage time 16:37 Jul 09 2016. Chief Complaint: ABDOMINAL PAIN, NAUSEA and VOMITING. --16:42 Josh Healy R.N. 16:37 07/09/16. BP: 124/85. HR: 77. RR: 16. O2 saturation: 100% on room air. Temp: 98.7 F. Pain level now: 09/15. --16:42 Josh Healy R.N. Acuity: LEVEL 3. --16:42 Josh Healy R.N. Weight: 47.6 kg stated. Height/Length: 60 inches Per Patient. BMI: 20.5. --16:36 Josh Healy R.N. Medications Percocet Oral. --16:38 Josh Healy R.N. Ibuprofen Oral. --16:39 Josh Healy R.N. Allergies No Known Drug Allergy. --16:39 Josh Healy R.N. Medication/allergy information source: the patient. --16:42 Josh Healy R.N. History Arrived by private vehicle. Historian: patient and family. Accompanied by family. This started today. Onset. (at 0600). ( Pt was here yesterday for L back pain, dx with kidney stone. Pt has returned here today for L sided abd pain, facial swelling, dysuria, and abdnormal discharge.). She has had nausea, vomiting and abdominal pain. Treatment [facility] [employer]S[facility]: Seen within the last 30 days at this facility in the ED; seen for similar symptoms; treatment- pain medication. --16:42 Josh Healy R.N. PAST MEDICAL HX: Immunizations: up-to-date. Last normal menstrual period- 06/27/16. SOCIAL HX: Heavy tobacco smoker- less than 1 pack per day. No alcohol use or drug use. No infectious disease exposure. ABUSE ASSESSMENT: No report of abuse. FALL RISK ASSESSMENT: Fall risk assessment completed. No fall risk identified. NUTRITIONAL RISK ASSESSMENT: The nutritional risk assessment revealed no deficiencies. FUNCTIONAL ASSESSMENT: Functional assessment: no impairments noted. LEARNING NEEDS ASSESSMENT: The learning needs assessment revealed no barriers. SKIN INTEGRITY ASSESSMENT: Skin integrity risk assessment completed. No skin integrity risk identified. --17:00 Josh Healy R.N. PROBLEMS: Hematuria. Renal Colic. Abdominal Pain. Congested pelvic syndrome . --16:39 Josh Healy R.N. ADDITIONAL SURGERIES: IUD . Leep . Thyroid Surgery. --16:39 Josh Healy R.N. Interventions ID band on patient. --16:42 Josh Healy R.N. PHYSICAL ASSESSMENT GENERAL / NEURO / PSYCH: Alert. Oriented X 4. Appears in pain. HEENT: Mucous membranes are pink. RESPIRATORY: Respirations not labored. CVS: Capillary refill less than 2 seconds. SKIN: Skin is warm and dry. --16:42 Josh Healy R.N. NURSING PROGRESS NOTES The plan of care for this patient has been created. Monitoring of patient in place. Head of bed elevated. Reassurance given. Two patient identifiers checked. Call light placed in reach. Bed placed in lowest position. Patient ready for evaluation- PA notified. --16:43 Josh Healy R.N. 16:56 07/09/2016 Site #1 started via IV in the right antecubital space with an 20g angiocath, with good blood return; two attempts. Blood drawn: rainbow set. Labeled in the presence of the patient and sent to the lab. Saline lock flushed with 10 mL saline. --16:56 Josh Healy R.N. 16:57 07/09/2016 Started bag #1 1000 mL IV Fluids IV NS (Saline); bolus of 1000 mL wide open via site #1. Allergies verified and confirmed 5 rights. IV patency established. IV site checked: no pain, redness, or swelling. IV flushed thoroughly pre- and post-medication administration. Completed per protocol. --16:57 Josh Healy R.N. 16:58 07/09/2016 Toradol IVP 30 mg given. via site #1. Allergies verified and confirmed 5 rights. IV patency established. IV site checked: no pain, redness, or swelling. IV flushed thoroughly pre- and post-medication administration. IVP given by RN. --16:58 Josh Healy R.N. Patient ID band checked for patient name and birthdate: patient confirmed. Instructions provided to collect clean catch urine and patient verbalized understanding. Clean catch urine collected with return of yellow-colored urine, sediment noted; sample sent to lab. Specimen labeled in the presence of the patient. --17:06 Josh Healy R.N. ( Assisted Pt up to restroom, she voided, and returned to her room. Pt still c/o abd pain, very concerned about reportedthick, brown discharge - Pt states it is unknown if it's vaginal or urethral in origin.). --17:43 Josh Healy R.N. 17:30 07/09/16. Urine test negative. --18:03 Josh Healy R.N. 17:31 07/09/2016 Zofran (Ondansetron HCl) IVP 4 mg given. via site #1. Allergies verified and confirmed 5 rights. IV patency established. IV site checked: no pain, redness, or swelling. IV flushed thoroughly pre- and post-medication administration. IVP given by RN. --17:31 Josh Healy R.N. 17:48 07/09/2016 Ciprofloxacin (Ciprofloxacin) PO Tablets 500 mg given. Allergies verified and confirmed 5 rights. --17:48 Josh Healy R.N. PELVIC EXAM: Pelvic exam performed by PA. Assisted by one tech. Preparation: pelvic tray. Procedure: speculum exam. Specimens collected and sent to lab: GC, chlamydia and wet prep. Total time of assist / procedure: 15 minutes. --18:13 Chante Hilario ER Tech1 18:22 07/09/2016 Dilaudid (HYDROmorphone HCl PF) IVP 0.5 mg given. via site #1. Allergies verified, confirmed 5 rights and sedative warning given to the patient and patient's family. IV patency established. IV site checked: no pain, redness, or swelling. IV flushed thoroughly pre- and post-medication administration. IVP given by RN. --18:22 Josh Healy R.N. ( Pt in pain, tearful, PRN order for Dilaudid obtained and administered.). --18:23 Josh Healy R.N. 18:23 07/09/16. BP: 106/75. HR: 76. RR: 18. O2 saturation: 100% on room air. Pain level now: 12/16. --18:23 Josh Healy R.N. 18:01 07/09/2016 IV Fluids IV NS Bag Change: bag #1 infused. Total amount infused: 1000. STARTED bag #2 (1000 mL) at 1000 mL/hr. Confirmed 5 rights. IV patency established. IV site checked: no pain, redness, or swelling. IV flushed thoroughly. --18:26 Josh Healy R.N. 18:01 07/09/2016 Toradol IVP Response: no adverse reaction symptoms are the same. --18:26 Josh Healy R.N. 18:11 07/09/2016 Zofran IVP Response: no adverse reaction. --18:27 Josh Healy R.N. 18:58 07/09/2016 Dilaudid IVP Response: no adverse reaction pain is worsening. Symptoms are the same. The patient feels the same. --19:08 Josh Healy R.N. 19:08 07/09/2016 Dilaudid (HYDROmorphone HCl PF) IVP 0.5 mg given. via site #1. Allergies verified, confirmed 5 rights and sedative warning given to the patient and patient's family. IV patency established. IV site checked: no pain, redness, or swelling. IV flushed thoroughly pre- and post-medication administration. IVP given by RN. --19:10 Josh Healy R.N. 19:08 07/09/16. BP: 111/73. HR: 81. RR: 18. O2 saturation: 100% on room air. Pain level now: 08/15. --19:11 Josh Healy R.N. 20:14. The patient is calm and resting quietly. SKIN: Skin is warm and dry. Skin color within normal limits. --20:20 Dipak Rushing R.N. DISPOSITION / DISCHARGE 20:12 07/09/2016 Site #1 removed upon discharge. Catheter intact. Bandage applied. --20:17 Dipak Rushing R.N. Departure time: 20:15. Condition at departure: stable. No learning barriers present. Discharge instructions provided and reviewed with the patient. Reviewed medication(s) side effects, precautions, dosing and course information. Prescription(s) given to the patient. Patient verbalized understanding. Written instructions provided in Latvian. ( Urine strainer and instructions for use given to pt). The patient was discharged home and accompanied by sales recruiter. She left the Emergency Department ambulatory and via private vehicle. Fence Machine Operator driving. FALL RISK ASSESSMENT: Fall risk assessment completed. No fall risk identified. --20:19 Dipak Rushing R.N. 20:10 07/09/16. BP: 100/67. HR: 75. RR: 14. O2 saturation: 99% on room air. Pain level now: 07/16. --20:19 Dipak Rushing R.N. Locked/Released at 07/09/2016 20:20 by Dipak Rushing R.N.
--- NOTE | 2016-07-09 18:46 | ED CLINICAL REPORT ---
Clinical Report - Physicians/Mid Levels [facility] [address] [place] [address] 07/09/2016 16:27 [id number] Time Seen: 16:46 Apr 03 2016. Arrived- By private vehicle. Historian- patient. HISTORY OF PRESENT ILLNESS Chief Complaint: FLANK PAIN. It is described as "pain". Is still present. (Patient reports left flank pain, and some migration of the location since yesterday. Denies any emesis. Reports possible slight swelling to her face. Denies any fevers. Has had some urgency and dysuria. Has a urology follow-up this week.). Recent medical care: The patient was seen recently in the emergency department (07/08/2016). REVIEW OF SYSTEMS No constipation, fever, headache, sore throat or difficulty breathing. No chills. She has had difficulty with urination, and pain on urination. The patient has had urinary frequency. All systems otherwise negative, except as recorded above. SOCIAL HISTORY Current every day smoker. No alcohol use or drug use. ADDITIONAL NOTES The nursing notes have been reviewed. PHYSICAL EXAM Vital Signs: 07/09/2016 16:37 BP: 124/85. HR: 77. RR: 16. O2 saturation: 100%. Temp: 98.7 F. Pain level now: 6/10. Appearance: Alert. Eyes: Eyes normal inspection. ENT: Ears normal. Neck: Normal inspection. No lymphadenopathy. CVS: Normal heart rate and rhythm. Heart sounds normal. Respiratory: No respiratory distress. Breath sounds normal. No decreased air movement. Abdomen: Soft. No abdominal tenderness or rebound tenderness. Back: Normal inspection. No CVA tenderness. : Speculum exam abnormal. Vaginal discharge present (brown, IUD in cervix). No vaginal bleeding. Bimanual exam abnormal. No tenderness present on bimanual exam. (chaperoned with SLAT BASKET MAKER HELPER MACHINE). Skin: Normal skin color. LABS, X-RAYS, AND EKG KUB: (IMPRESSION: 1. Tiny bilateral intrarenal calculi. 2. No bowel obstruction. Electronically Final signed by:Jo Funk MD 07/09/2016 8:44:24 PM). Laboratory Tests: UA-Culture if indicated: (NILAM: 07/09/2016 16:45) ( MsgRcvd 07/09/2016 17:40) Final results Test Result Flag Units (Reference) URINE COLOR PINK URINE APPEARANCE SL CLOUDY URINE GLUCOSE NEGATIVE (NEGATIVE) URINE BILIRUBIN NEGATIVE (NEGATIVE) URINE KETONE NEGATIVE (NEGATIVE) URINE SPECIFIC GRAVITY 1.010 (1.010-1.030) URINE PH 6.0 (5.0-8.0) URINE PROTEIN NEGATIVE (NEGATIVE) URINE UROBILINOGEN 0.2 EU/dL (0.2-1.0) URINE NITRITE NEGATIVE (NEGATIVE) URINE BLOOD 3+ (NEGATIVE) URINE LEUK ESTERASE POSITIVE (NEGATIVE) URINE RBC 75-100 rbc/hpf (0-1) URINE WBC 5-10 wbc/hpf (0-1) URINE EPITHELIAL CELLS >15 EPI/hpf (0-5) URINE BACTERIA MODERATE (2+ TO 3+) (NONE SEEN) URINE COMMENT CULTURE INDICATED URINE CULTURES ARE SET-UP BASED ON THE FOLLOWING CRITERIA:POSITIVE NITRITEPOSITIVE LEUKOCYTE ESTERASEGREATER THAN 10 WHITE BLOOD CELLSMODERATE (2+) OR GREATER BACTERIA CBC w Diff: (NILAM: 07/09/2016 17:01) ( MsgRcvd 07/09/2016 19:09) Final results Test Result Flag Units (Reference) WHITE BLOOD COUNT 10.1 K/uL (4.5-11.5) RED BLOOD COUNT 3.59 L M/uL (4.00-5.20) HEMOGLOBIN 10.6 L gm/dL (12.0-16.0) HEMATOCRIT 31.9 L % (36.0-46.0) MEAN CELL VOLUME 89 fL (80-100) MEAN CORPUSCULAR HGB 30 pg (26-34) MEAN CORPUSCULAR HGB CONC 33 g/dL (31-37) RED CELL DISTRIBUTION WIDTH 13.2 % (11.6-14.8) PLATELET COUNT 220 K/uL (150-400) NEUTROPHIL % 73.7 % (50-75) LYMPH % 14.4 L % (25-40) MONO % 10.8 % (3-14) EOSINOPHIL % 0.8 % (0-4) BASOPHIL % 0.3 % (0-2) CMP: (NILAM: 07/09/2016 17:01) ( MsgRcvd 07/09/2016 19:14) Final results Test Result Flag Units (Reference) GLUCOSE 88 mg/dL (70-110) BUN 9 mg/dL (7-18) CREATININE 1.3 mg/dL (0.6-1.3) Estimated GFR 48.99 mL/min Estimated GFR- 59.37 mL/min Note: Persistent reduction over 3 months in eGFR<60 mL/min/1.73 m2 defines CKD. Patients with eGFR values>=60 mL/min/1.73 m2 may also have CKD if evidence ofpersistent proteinuria. Additional information may be foundat www.kidney.org. SODIUM 140 mmol/L (136-145) POTASSIUM 3.7 mmol/L (3.5-5.1) CHLORIDE 105 mmol/L (98-107) CARBON DIOXIDE 25 mmol/L (21-32) CALCIUM 8.2 L mg/dL (8.5-10.1) TOTAL PROTEIN 6.2 L g/dL (6.4-8.2) ALBUMIN 3.6 g/dL (3.3-5.0) BILIRUBIN, TOTAL 0.3 mg/dL (0.0-1.0) ALKALINE PHOSPHATASE 33 L U/L (46-116) AST (SGOT) 16 U/L (15-37) ALT (SGPT) 11 L U/L (12-78) Wet Prep: (NILAM: 07/09/2016 18:00) ( MsgRcvd 07/09/2016 18:21) Final results SPECIMEN DESCRIPTION: C Test Result Flag Units (Reference) WET MOUNT CLUE CELLS:: NONE EPITHELIAL CELLS: MODERATE -- SOURCE?: CERVIX WHITE BLOOD CELLS: FEW TRICHOMONAS:: NONE -- YEAST:: NONE . Note - Tests: (recent ct: IMPRESSION: 1. There is mild left hydronephrosis and hydroureter secondary to a 3 mm calculus at the left ureteral vesicle junction. 2. There is a 2 mm nonobstructing calculus of the left kidney. 3. There is a 1 mm nonobstructing calculus of the right kidney. 4. T-shaped IUD in position. 5. Small amount of free fluid in the pelvis. Consider occult ruptured ovarian cyst. 6. Findings discussed with Dr. Chiki Lopes. All CT scans at this facility use dose modulation, iterative reconstruction, and/or weight-based dosing when appropriate to reduce radiation dose to as low as reasonably achievable. Electronically Final signed by:Jose Manuel Aleman MD 07/08/2016 10:11:11 AM). PROGRESS AND PROCEDURES Course of Care: Chaperoned pelvic exam. Pt recently with IUD in place, now with brown discharge, and with pain. Believe she is having sx from her vaginal discharge, likely cramping in nature, no ovarian pain/ tendernss on adnexa. PT very stable. Will switch from percocet to vicodin. Pt to f/u with urology as well as her pcp. Her IUD is in place. NO signs of acute surgical abdomen. Neg upreg on the 08 of July. Confirmed nephrolithiasis. During the time in the ED, the following DDX were considered: acute surgical abdomen, hemodynamic or metabolic instability, dehydration, gastroenteritis-viral, food borne, or bacterial, food intolerance, irritable or inflammatory bowel, infection, sepsis. 07/09/2016 20:10 BP: 100/67. HR: 75. RR: 14. O2 saturation: 99%. Pain level now: 4/10. Patient is stable. Symptoms better. Patient/family counseled. Disposition: Discharged. CLINICAL IMPRESSION Left nephrolithiasis with renal colic. Acute moderate vaginitis INSTRUCTIONS Drink plenty of fluids. (please make an appointment for follow up for your IUD STOP percocet take vicodin take 4 mg under tongue of zofran 30 mins before vicodin You have lots of gas in your abdomen this will pass YOUR labs look great as discussed signs concerning of early infection in bladder). Prescription Medications: Hydrocodone/APAP 7.5mg / 325mg: take 1 orally every 6 hours as needed for pain. Dispense twenty (20). No refill. Cipro 500 mg: take 1 tab orally every 12 hours for 10 days. Dispense twenty (20). No refills. Substitution is permissible. Metronidazole 500 mg: Take 1 tablet orally every 12 hours for 7 days. No refill. Follow-up: Follow up with a specialist in three days. (Electronically signed by Susy Mcfarland P.A.-C 07/09/2016 21:08)
--- NOTE | 2016-07-09 18:46 | ED ORDER SUMMARY ---
..... Patient: RANDY SESAY OrderSheet [facility] VisitID: [id number] [place] [address] 36y, F Registration Date/Time: 07/09/2016 ORDER SHEET Weight: 47.6 kg (stated) Allergies: No Known Drug Allergy GENERAL ORDERS: UA-Culture if indicated Urgent (17:14 07/09/2016 EKoroleva P.A.-C) (17:15 MCook R.N.) Wet Prep (Cervix) (c) Urgent (18:06 07/09/2016 EKoroleva P.A.-C) (Ack 18:08 KHoerner) (18:12 MCook R.N.) (18:12 KHoerner) GC/Chlamydia (Cervix) (c) Urgent (18:06 07/09/2016 EKoroleva P.A.-C) (Ack 18:08 KHoerner) (18:12 MCook R.N.) (18:12 KHoerner) Abdomen 1V Upright Urgent (18:56 07/09/2016 EKoroleva P.A.-C) (Ack 19:00 KHoerner) (19:42 MCampbell) CBC w Diff Urgent (18:56 07/09/2016 EKoroleva P.A.-C) (Ack 19:00 KHoerner) (19:03 MCook R.N.) CMP Urgent (18:56 07/09/2016 EKoroleva P.A.-C) (Ack 19:00 KHoerner) (19:03 MCook R.N.) MEDICATION ORDERS: Ciprofloxacin PO 500 mg (NOW) (17:43 07/09/2016 EKoroleva P.A.-C) (17:48 MCook R.N.) IV FLUIDS: IV NS : initial bolus 1000 mL (1000 mL/hr), then 1000 mL/hr for X1 (NOW); Hilario (16:44 07/09/2016 EKoroleva P.A.-C) (16:57 MCook R.N.) Toradol IV 30 mg (NOW) (16:44 07/09/2016 EKoroleva P.A.-C) (16:58 Patrick R.N.) IV Saline Lock (16:44 07/09/2016 EKoroleva P.A.-C) (16:56 MCook R.N.) Zofran IV 4 mg (NOW) (17:28 07/09/2016 EKoroleva P.A.-C) (17:31 Purnimak R.N.) Dilaudid IV 0.5 mg (may repeat in 15 mins, total dose for this order is 1 MG) (18:19 07/09/2016 EKoroleva P.A.-C) (18:22 MCook R.N.) ORDER SHEET NOTES: [Electronically signed by Dipak Rushing R.N. (20:20 07/09/2016)] [Electronically signed by Susy McfarlandADanielito-C (21:08 07/09/2016)] [Electronically locked/signed by Dipak Rushing R.N. (20:20 07/09/2016)]
--- NOTE | 2016-07-09 20:44 | DIAGNOSTIC IMAGING REPORT ---
PROCEDURE: XR ABDOMEN 1 VIEW UPRIGHT INDICATION: ABDOMINAL PAIN TECHNIQUE: Single view upright abdomen. COMPARISON: CT 07/08/2016 FINDINGS: No free air. Nonspecific, nonobstructive bowel gas pattern with a paucity of small bowel gas and normal colonic air and stool. Punctate calculi project over each renal shadow. An IUD is in place. No suspicious mass or mass effect. Intact osseous structures. IMPRESSION: 1. Tiny bilateral intrarenal calculi. 2. No bowel obstruction.
--- NOTE | 2016-07-09 21:08 | ED MED RECONCILIATION SUMMARY ---
Patient: RANDY SESAY Medication Reconciliation Report [facility] VisitID: [id number] [address] [place] [address] 36y, F Registration Date/Time: 07/09/2016 Weight: 47.6 kg Height/Length: 60 in. BMI: 20.5 ALLERGIES: No Known Drug Allergy The patient's Home Medications are listed below: THE FOLLOWING MEDICATIONS NEED TO BE RECONCILED: Ibuprofen Oral Percocet Oral The source(s) of the original Home Medication information: patient The following Medications were given to the patient in the Emergency Department: IV NS IV Fluids bolus 1000 mL wide open, administered: 07/09/2016 4:57:00 PM Toradol [IVP] IVP 30 mg, administered: 07/09/2016 4:58:00 PM Zofran [IVP] IVP 4 mg, administered: 07/09/2016 5:31:00 PM Ciprofloxacin [PO] PO 500 mg, administered: 07/09/2016 5:48:00 PM Dilaudid [IVP] IVP 0.5 mg, administered: 07/09/2016 6:22:00 PM Dilaudid [IVP] IVP 0.5 mg, administered: 07/09/2016 7:08:00 PM The following Medications were prescribed to the patient: Hydrocodone/APAP 7.5mg / 325mg: take 1 orally every 6 hours as needed for pain. Dispense twenty (20). No refill. -- Susy Mcfarland, P.A.-C Cipro 500 mg: take 1 tab orally every 12 hours for 10 days. Dispense twenty (20). No refills. Substitution is permissible. -- Susy Mcfarland, P.A.-C Metronidazole 500 mg: Take 1 tablet orally every 12 hours for 7 days. No refill. -- Susy Mcfarland, P.A.-C
--- NOTE | 2016-07-09 21:08 | ED DISCHARGE INSTRUCTIONS ---
Patient: RANDY SESAY General Instructions [facility] VisitID: [id number] [place] [address] 36y, F Registration Date/Time: 07/09/2016 Left nephrolithiasis with renal colic. Acute moderate vaginitis INSTRUCTIONS Drink plenty of fluids. (please make an appointment for follow up for your IUD STOP percocet take vicodin take 4 mg under tongue of zofran 30 mins before vicodin You have lots of gas in your abdomen this will pass YOUR labs look great as discussed signs concerning of early infection in bladder). Prescription Medications: Hydrocodone/APAP 7.5mg / 325mg: take 1 orally every 6 hours as needed for pain. Dispense twenty (20). No refill. Cipro 500 mg: take 1 tab orally every 12 hours for 10 days. Dispense twenty (20). No refills. Substitution is permissible. Metronidazole 500 mg: Take 1 tablet orally every 12 hours for 7 days. No refill. Follow-up: Follow up with a specialist in three days. ADDITIONAL INFORMATION Kidney Stone (W/ Colic) The sharp cramping pain and nausea/vomiting that you have is due to a small stone which has formed in the kidney and is now passing down a narrow tube (ureter) on its way to your bladder. Once it reaches your bladder, the pain will stop. The stone may pass in your urine stream in one piece. [The size may be 1/16" to 1/4" (1-6mm)]. Or, the stone may also break up into barb fragments which you may not even notice. Once you have had a kidney stone, you are at risk for developing another one in the future. Home Care: Drink plenty of fluids (at least 8 to 10 glasses of water a day). Most stones will pass on their own, but may take from a few hours to a few days. Sometimes the stone is too large to pass by itself and special methods will have to be used to remove the stone. Each time you urinate, do so in a jar. Pour the urine from the jar through the strainer and into the toilet. Continue doing this until 24 hours after your pain stops. By then, if there was a kidney stone, it should pass from your bladder. Some stones dissolve into sand-like particles and pass right through the strainer. In that case, you wont ever see a stone. Save any stone that you find in the strainer and bring it to your doctor for analysis. It may be possible to prevent certain types of stones from forming. Therefore, it is important to know what kind of stone you have. Try to stay as active as possible since this will help the stone pass. Do not stay in bed unless your pain prevents you from getting up. You may notice a red, pink or brown color to your urine. This is normal while passing a kidney stone. Follow Up with your doctor or return to this facility if the pain lasts more than 48 hours. Get Prompt Medical Attention if any of the following occur: Pain that is not controlled by the medicine given Repeated vomiting or unable to keep down fluids Weakness, dizziness or fainting Fever of 100.4F (38C) or higher, or as directed by your healthcare provider Passage of solid red or brown urine (can't see through it) or urine with lots of blood clots Unable to pass urine for 8 hours and increasing bladder pressure Blood In The Urine Blood in the urine ("hematuria") has many possible causes. If it occurs after an injury (such as a car accident or fall), it is most often a sign of bruising to the kidney or bladder. Common medical causes of blood in the urine include urinary tract infection, kidney stone, inflammation, tumors, or certain other diseases of the kidney or bladder. Menstruation can cause blood to appear in the urine sample, although it is not coming from the urinary tract. If only a trace amount of blood is present, it will show up on the urine test, even though the urine may be yellow and not pink or red. This may occur with any of the above conditions, as well as heavy exercise or high fever. In this case, your doctor may want to repeat the urine test on another day. This will show if the blood is still present. If so, then other tests can be done to find out the cause. Home Care: If your urine does not appear bloody (pink, brown or red) then you do not need to restrict your activity in any way. If you can see blood in your urine, rest and avoid heavy exertion until your next exam. Do not use aspirin or anti-inflammatory medicine like ibuprofen (Motrin, Advil) or naproxen (Naprosyn, Aleve). These thin the blood and may increase bleeding. Follow Up with your doctor or as advised by our staff. If you were injured and had blood in your urine, you should have a repeat urine test in 1-2 days. Contact your doctor or return to this facility for this test. [NOTE: A radiologist will review any X-rays that were taken. We will notify you of any new findings that may affect your care.] Get Prompt Medical Attention if any of the following occur: Bright red blood or blood clots in the urine (if a new symptom) Weakness, dizziness or fainting New groin, abdominal or back pain Fever of 100.4F (38C) or higher, or as directed by your healthcare provider Repeated vomiting Bleeding from nose, gums or easy bruising Bacterial Vaginosis You have a bacterial infection of the vagina called bacterial vaginosis (BV). It may also be called gardnerella or non-specific vaginitis. BV occurs when the "bad" bacteria outnumber the "good" bacteria that are normally present in the vagina. Symptoms include foul-smelling vaginal discharge (most noticeable after vaginal intercourse). There may also be burning with urination. The burning is caused as the urine passes over the inflamed outer vaginal area. The cause of bacterial vaginosis is not certain. However, your risk is higher if you recently began a new sexual relationship, or have had many sex partners in the past. Your risk is also higher if you douche often. While bacterial vaginosis most often occurs only in sexually active women, this is not a true sexually transmitted disease. You did not get this from your partner. You cannot give it to your partner. The infection may be related to temporary changes in the pH of vaginal fluids after being exposed to semen. Home Care: Keep the genital area clean and free of discharge. Do this by wearing an absorbent sanitary pad and changing it often. Shower daily. When you shower, clean the outer vaginal area with plain soap and water. Do not douche during treatment unless advised to do so by your doctor. Routine douching after treatment is no longer recommended to clean the vagina. It raises your risk of vaginal infection and pelvic inflammatory disease. Avoid having sex until you have finished all antibiotic medicine and all symptoms have gone away. Wear cotton underwear or cotton-lined panty hose. Dont wear pants that are too tight. Limiting the number of sex partners you have lowers your risk of this and other vaginal infections, STDs, and HIV. Take all medicine as directed until it is gone, even if you are feeling better. If you dont do this, symptoms might return. Follow Up with your doctor if symptoms dont go away after the medicine is finished. Get Prompt Medical Attention if any of the following occur: Fever of 100.4F (38C) or higher, or as directed by your healthcare provider Lower abdominal pain Rash or joint pain Painful sores around the outer vaginal area or on your partners penis Hydrocodone Bitartrate, Acetaminophen Oral tablet What is this medicine? ACETAMINOPHEN; HYDROCODONE (a set a TYRA ann fen; braulio droe KOE done) is a pain reliever. It is used to treat mild to moderate pain. How should I use this medicine? Take this medicine by mouth. Swallow it with a full glass of water. Follow the directions on the prescription label. If the medicine upsets your stomach, take the medicine with food or milk. Do not take more than you are told to take. Talk to your computational geneticist regarding the use of this medicine in children. This medicine is not approved for use in children. What side effects may I notice from receiving this medicine? Side effects that you should report to your doctor or health rn long term care as soon as possible: allergic reactions like skin rash, itching or hives, swelling of the face, lips, or tongue breathing problems confusion feeling faint or lightheaded, falls stomach pain yellowing of the eyes or skin Side effects that usually do not require medical attention (report to your doctor or health rn long term care if they continue or are bothersome): nausea, vomiting stomach upset What may interact with this medicine? alcohol antihistamines isoniazid medicines for depression, anxiety, or psychotic disturbances medicines for sleep muscle relaxants naltrexone narcotic medicines (opiates) for pain phenobarbital ritonavir tramadol What if I miss a dose? If you miss a dose, take it as soon as you can. If it is almost time for your next dose, take only that dose. Do not take double or extra doses. Where should I keep my medicine? Keep out of the reach of children. This medicine can be abused. Keep your medicine in a safe place to protect it from theft. Do not share this medicine with anyone. Selling or giving away this medicine is dangerous and against the law. Store at room temperature between 15 and 30 degrees C (59 and 86 degrees F). Protect from light. Keep container tightly closed. Throw away any unused medicine after the expiration date. Discard unused medicine and used packaging carefully. Pets and children can be harmed if they find used or lost packages. What should I tell my health care provider before I take this medicine? They need to know if you have any of these conditions: brain tumor Crohn's disease, inflammatory bowel disease, or ulcerative colitis drink more than 3 alcohol-containing drinks per day drug abuse or addiction head injury heart or circulation problems kidney disease or problems going to the bathroom liver disease lung disease, asthma, or breathing problems an unusual or allergic reaction to acetaminophen, hydrocodone, other opioid analgesics, other medicines, foods, dyes, or preservatives or trying to get breast-feeding What should I watch for while using this medicine? Tell your doctor or health rn long term care if your pain does not go away, if it gets worse, or if you have new or a different type of pain. You may develop tolerance to the medicine. Tolerance means that you will need a higher dose of the medicine for pain relief. Tolerance is normal and is expected if you take the medicine for a long time. Do not suddenly stop taking your medicine because you may develop a severe reaction. Your body becomes used to the medicine. This does NOT mean you are addicted. Addiction is a behavior related to getting and using a drug for a non-medical reason. If you have pain, you have a medical reason to take pain medicine. Your doctor will tell you how much medicine to take. If your doctor wants you to stop the medicine, the dose will be slowly lowered over time to avoid any side effects. You may get drowsy or dizzy when you first start taking the medicine or change doses. Do not drive, use machinery, or do anything that may be dangerous until you know how the medicine affects you. Stand or sit up slowly. There are different types of narcotic medicines (opiates) for pain. If you take more than one type at the same time, you may have more side effects. Give your health care provider a list of all medicines you use. Your doctor will tell you how much medicine to take. Do not take more medicine than directed. Call emergency for help if you have problems breathing. The medicine will cause constipation. Try to have a bowel movement at least every 2 to 3 days. If you do not have a bowel movement for 3 days, call your doctor or health rn long term care. Too much acetaminophen can be very dangerous. Do not take Tylenol (acetaminophen) or medicines that contain acetaminophen with this medicine. Many non-prescription medicines contain acetaminophen. Always read the labels carefully. You have been given the following additional information: Kidney Stone W/ Colic Hematuria Vaginitis, Bacterial Hydrocodone Bitartrate, Acetaminophen Oral tablet (Electronically signed by Susy Mcfarland P.A.-C 07/09/2016 21:08)
--- NOTE | 2016-07-09 21:08 | ED MED RECONCILIATION SUMMARY ---
Patient: RANDY SESAY Medication Reconciliation Report [facility] VisitID: [id number] [address] [place] [address] 36y, F Registration Date/Time: 07/09/2016 Weight: 47.6 kg Height/Length: 60 in. BMI: 20.5 ALLERGIES: No Known Drug Allergy The patient's Home Medications are listed below: THE FOLLOWING MEDICATIONS NEED TO BE RECONCILED: Ibuprofen Oral Percocet Oral The source(s) of the original Home Medication information: patient The following Medications were given to the patient in the Emergency Department: IV NS IV Fluids bolus 1000 mL wide open, administered: 07/09/2016 4:57:00 PM Toradol [IVP] IVP 30 mg, administered: 07/09/2016 4:58:00 PM Zofran [IVP] IVP 4 mg, administered: 07/09/2016 5:31:00 PM Ciprofloxacin [PO] PO 500 mg, administered: 07/09/2016 5:48:00 PM Dilaudid [IVP] IVP 0.5 mg, administered: 07/09/2016 6:22:00 PM Dilaudid [IVP] IVP 0.5 mg, administered: 07/09/2016 7:08:00 PM The following Medications were prescribed to the patient: Hydrocodone/APAP 7.5mg / 325mg: take 1 orally every 6 hours as needed for pain. Dispense twenty (20). No refill. -- Susy Mcfarland, P.A.-C Cipro 500 mg: take 1 tab orally every 12 hours for 10 days. Dispense twenty (20). No refills. Substitution is permissible. -- Susy Mcfarland, P.A.-C Metronidazole 500 mg: Take 1 tablet orally every 12 hours for 7 days. No refill. -- Susy Mcfarland, P.A.-C
--- NOTE | 2016-07-09 21:08 | ED MAR SUMMARY ---
..... Medication Administration Record [facility] [address] [place] [address] Patient: RANDY SESAY Visit ID: [id number] 36y, F Weight: 47.6 kg Height/Length: 60 in BMI: 20.5 ALLERGIES: No Known Drug Allergy Start 16:57 07/09/2016 Josh Healy R.N. Medication Administered: IV NS (SALINE), Dose: IV Fluids, Bolus: 1000 mL wide open, Dispensed: 1000 mL bag, Site: #1 right AC. Medication Ordered: IV NS : initial bolus 1000 mL (1000 mL/hr), then 1000 mL/hr for X1 (NOW); Hilario. Given 16:58 07/09/2016 Josh Healy R.N. Medication Administered: TORADOL [IVP], Dose: 30 mg IVP, Site: #1 right AC. Medication Ordered: Toradol IV 30 mg (NOW). Given 17:31 07/09/2016 Josh Healy R.N. Medication Administered: ZOFRAN [IVP] (ONDANSETRON HCL), Dose: 4 mg IVP, Site: #1 right AC. Medication Ordered: Zofran IV 4 mg (NOW). Given 17:48 07/09/2016 Josh Healy R.N. Medication Administered: CIPROFLOXACIN [PO] (CIPROFLOXACIN), Dose: 500 mg Tablets PO. Medication Ordered: Ciprofloxacin PO 500 mg (NOW). Given 18:22 07/09/2016 Josh Healy R.N. Medication Administered: DILAUDID [IVP] (HYDROMORPHONE HCL PF), Dose: 0.5 mg IVP, Site: #1 right AC. Medication Ordered: Dilaudid IV 0.5 mg (may repeat in 15 mins, total dose for this order is 1 MG). Given 19:08 07/09/2016 Josh Healy R.N. Medication Administered: DILAUDID [IVP] (HYDROMORPHONE HCL PF), Dose: 0.5 mg IVP, Site: #1 right AC. Medication Ordered: Dilaudid IV 0.5 mg (may repeat in 15 mins, total dose for this order is 1 MG).
--- NOTE | 2016-07-09 21:08 | ED MAR SUMMARY ---
..... Medication Administration Record [facility] [address] [place] [address] Patient: RANDY SESAY Visit ID: [id number] 36y, F Weight: 47.6 kg Height/Length: 60 in BMI: 20.5 ALLERGIES: No Known Drug Allergy Start 16:57 07/09/2016 Josh Healy R.N. Medication Administered: IV NS (SALINE), Dose: IV Fluids, Bolus: 1000 mL wide open, Dispensed: 1000 mL bag, Site: #1 right AC. Medication Ordered: IV NS : initial bolus 1000 mL (1000 mL/hr), then 1000 mL/hr for X1 (NOW); Hilario. Given 16:58 07/09/2016 Josh Healy R.N. Medication Administered: TORADOL [IVP], Dose: 30 mg IVP, Site: #1 right AC. Medication Ordered: Toradol IV 30 mg (NOW). Given 17:31 07/09/2016 Josh Healy R.N. Medication Administered: ZOFRAN [IVP] (ONDANSETRON HCL), Dose: 4 mg IVP, Site: #1 right AC. Medication Ordered: Zofran IV 4 mg (NOW). Given 17:48 07/09/2016 Josh Healy R.N. Medication Administered: CIPROFLOXACIN [PO] (CIPROFLOXACIN), Dose: 500 mg Tablets PO. Medication Ordered: Ciprofloxacin PO 500 mg (NOW). Given 18:22 07/09/2016 Josh Healy R.N. Medication Administered: DILAUDID [IVP] (HYDROMORPHONE HCL PF), Dose: 0.5 mg IVP, Site: #1 right AC. Medication Ordered: Dilaudid IV 0.5 mg (may repeat in 15 mins, total dose for this order is 1 MG). Given 19:08 07/09/2016 Josh Healy R.N. Medication Administered: DILAUDID [IVP] (HYDROMORPHONE HCL PF), Dose: 0.5 mg IVP, Site: #1 right AC. Medication Ordered: Dilaudid IV 0.5 mg (may repeat in 15 mins, total dose for this order is 1 MG).
== END 2016-07-09 20:20 | disposition home or self-care (01) ==
LOC: ED SRH 16:26
DX: N20.0 Calculus of kidney (principal); N23 Unspecified renal colic; N76.0 Acute vaginitis; F17.210 Nicotine dependence, cigarettes, uncomplicated
CPT/HCPCS: 90004; 90100; 90195; 90469; 91227; 91228; 95059